=== PATIENT | female | born 1975 | race Caucasian/White ===

== ENCOUNTER → 2016-03-14 | Outpatient (CLI) | payer BC ==
[~2016-03-14] MED LIST: ASPI1TAB14 PO; ASPI1TAB22 PO; DESO1TAB PO; ELET40TA PO; ESOM20CA PO; HYDR5SUS PO; LORA-404 PO; MAGN400C PO; MAGN500C4 PO; METH-290 PO; NAPR220C11 PO; NAPR220T76 PO; NAPR550T PO; OMEP20TA PO; OXYC-109 PO; PHEN10TA20 PO; PRED20TA PO; PRM25T PO; PSEU120T53 PO; RIBO100T6 PO; SERT100T PO; SERT50TA2 PO; SULF-221 PO; TOPI25CA6 PO; TOPI50TA5 PO; ZLP10T PO
[2016-03-14 14:49] VITALS: BP 141/97
--- NOTE | 2016-03-14 14:49 | Urgent Care T Sheet Gen (E) ---
Intake General Temperature (Fahrenheit): 98.0 Pulse: 103 Blood Pressure Systolic: 141 Blood Pressure Diastolic: 97 Respirations: 20 SPO2: 100 Description of Symptoms Patient presents with sinus congestion and pressure. States the headache started about a week ago, most intense in the forehead. States the sinus congestion started about 4 days ago. No cough or chest symptoms. Been taking several OTC meds without improvement. Took some severe cold decongestant earlier. No fever. History of Present Illness Allergies: Coded Allergies: cefotetan (Verified Allergy, Severe, 03/30/14) Penicillins (Verified Allergy, Unknown, 03/30/14) Home Meds Active Scripts Prednisone 20 Mg Lgzozp56 Mg PO DAILY #6 TAB Prov:ANDI RM 03/14/16 Sulfamethoxazole/Trimethoprim (Sulfamethoxazole/Trimethoprim DS 800mg/160mg)1 Each Tablet1 Each PO BID #14 TAB Prov:ANDI RM 03/14/16 Hydrocodone/Chlorphen Polis (Hydrocodone-Chlorpheniram Susp)5 Ml Muna.er.12h5 Ml PO Q12H PRN COUGH #60 Prov:DENIS LAL MD 09/21/14 Reported Medications Sertraline HCl (Zoloft)100 Mg Mfsugm615 Mg PO DAILY 12/08/14 Desogestrel-Ethinyl Estradiol (Emoquette)1 Each Tablet1 Each PO DAILY 09/05/14 Magnesium Oxide (Magnesium)500 Mg Favvmfl470 Mg PO DAILY 09/05/14 Topiramate 50 Mg Dnrnam37 Mg PO BID 09/05/14 Eletriptan Hydrobromide (Relpax)40 Mg Ijtooh37 Mg PO PRN 03/30/14 Aspirin/Acetaminophen/Caffeine (Excedrin Migraine Caplet)1 Each Tablet2 Each PO PRN 03/30/14 Pseudoephedrine HCl (Sudafed 12 Hour)120 Mg Tablet.er240 Mg PO PRN 03/30/14 Naproxen Sodium (Aleve)220 Mg Vcqyvp594 Mg PO PRN 03/30/14 Methylphenidate HCl (Methylphenidate ER)10 Mg Tablet.er10 Mg PO PRN 03/30/14 Lorazepam (Ativan)0.5 Mg Tablet0.5 Mg PO PRN PRN ANXIETY Ref 0 03/30/14 Riboflavin (Vitamin B-2)100 Mg Flshld773 Mg PO DAILY 03/30/14 Esomeprazole Magnesium (Nexium)20 Mg Capsule.dr20 Mg PO DAILY 03/30/14 Respiratory Constitutional Symptoms: Malaise EENTM: Nose Congestion Respiratory: No symptoms reported Cardiovascular: No symptoms reported Neurological: Headache All Other Systems Reviewed Remaining Systems: All other systems reviewed with negative findings Past Snvozfm-Drbvqw-Ueobto Hx Patient's Social History Recent foreign travel: No Surgeries/Hospitalizations Hospitalization/Surgery Hx: MIGRAINE, DEPRESSION, ANXIETY, LEFT WRIST SURGERY D&C X2 Respiratory Respiratory History: Asthma Comment: asthma as a child Cardiovascular Cardiovascular History: None Reproductive System Sexually Transmitted Diseases: No Gastrointestinal GI/Endocrine History: GERD Diabetes Diabetes: No HEENT Impaired Vision: Glasses Hearing Impaired: None Psychosocial Behavior Disorders: None Physical Exam Physical Exam General Appearance: WD/WN No apparent distress Eyes, Ears, Nose, Throat Ex: TMs normal (air fluid bubbles) Pharyngeal erythema (cobblestone appearance) Other (red, swollen nasal turbinates with clear nasal drainage. tender over frontal sinuses) Neck Exam: SuppleNo Lymphadenopathy Respiratory Exam: Lungs clear Normal breath sounds Cardiovascular Exam: Regular rate, rhythm Departure Urgent Care Impression Impression: Primary Impression: Sinusitis Qualified Code: J01.10 - Acute frontal sinusitis, unspecified Departure Disposition: HOME OR SELF-CARE Condition: Stable Referrals: BROWN DOUGLASS MD (PCP) Additional Instructions: I have started the patient on Bactrim for treatment of her infection. States she took a Z-Pack with her last sinus infection and it didn't seem quite strong enough. I have also prescribed Prednisone for congestion and swelling. No NSAIDs while on this. Suggested she DC the OTC cold meds as they are most likely increasing her BP Rest. Fluids Return as needed Patient understands DC instructions. All questions were answered. Scripts Prednisone 20 Mg Axgure65 Mg PO DAILY #6 TAB Prov:ANDI RM 03/14/16 Sulfamethoxazole/Trimethoprim (Sulfamethoxazole/Trimethoprim DS 800mg/160mg)1 Each Tablet1 Each PO BID #14 TAB Prov:ANDI RM 03/14/16 End of report . ANDI RM Mar 14, 2016 14:24
== END ==
LOC: MHUC 13:57
PROVIDERS: ATTEND Physician Assistant
DX: J01.10 Acute frontal sinusitis, unspecified (principal)
CPT/HCPCS: 99213

== ENCOUNTER 2016-07-20 16:08 | Emergency (ER) | payer BC ==
[~2016-07-20] VITALS: Ht 165.1 cm; Wt 109.0 kg
[~2016-07-20 16:08] MED LIST changes: -TOPI50TA5 PO; +TOPI50TA86 PO
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
--- OUTSIDE RECORDS SUMMARY | 2016-07-20 16:15 | XMS REPORT | Continuity of Care Document ---
Author Author [facility] Address Unknown Phone Unavailable Allergies Active Description Code Type Severity Reaction Onset Reported/Identified Relationship to Patient Clinical Status Yes cefotetan [id number] Drug Allergy Severe N/A 03/30/2014 Yes Penicillins [id number] Drug Allergy Unknown N/A 03/30/2014 Medications Problems [...] Status Pt. Type Provider Facility Loc./Unit Complaint [id number] 12/08/2014 19:02:00 2014 20:35:00 DIS Emergency OZIEL MAYORGA DO [facility] ED [id number] 09/21/2014 21:35:00 2014 22:53:00 DIS Emergency HALI GIANG, [facility] ED [id number] 09/05/2014 21:34:00 2014 23:30:00 DIS Emergency HALI GIANG, [facility] ED [id number] 03/30/2014 16:27:00 2014 18:44:00 DIS Emergency ULICES GIANG, MARCELA Cabrales [facility] ED [id number] 09/30/2013 11:28:00 2013 23:59:59 CLS Outpatient Viet GIANG, [facility] * MEASELS TITER [id number] 09/24/2013 20:03:00 2013 00:00:00 DIS Emergency ADELINA SUAREZ DO [facility] ED [id number] 04/03/2013 09:12:00 2013 11:50:00 DIS Emergency JIMMY NOMEI [facility] ED [id number] 07/20/2016 16:11:00 ACT Emergency MIKAYLA GIANG, KYRA [facility] ED [id number] 03/14/2016 13:57:00 ACT Outpatient SUJEY CLARKE, ANDI Hernandez [facility] [id number] 01/16/2016 10:14:00 [id number] 05/31/2012 14:09:00 Document Registration [id number] 05/31/2012 13:15:00 Document Registration [id number] 02/28/2012 08:12:00 Document Registration
[2016-07-20] MEDS ORDERED: KETOROLAC 30 MG/ML (TORADOL) 1 ML VIAL IV ONE (16:30)
[2016-07-20] MEDS ORDERED: METOCLOPRAMIDE 10 MG/2 ML (REGLAN) VIAL IV ONE (16:30)
[2016-07-20] MEDS ORDERED: diphenhydrAMINE 50 MG/ML INJ (BENADRYL) IV ONE (16:30)
[2016-07-20] MEDS ORDERED: DEXAMETHASONE 10 MG/ML (DECADRON) VIAL IV ONE (16:30)
[2016-07-20] MEDS ORDERED: HALOPERIDOL 5 MG/ML (HALDOL) 1 ML AMP IV ONE (17:35)
--- NOTE | 2016-07-20 17:40 | NUR ---
Clarified order of Haldol to be given IV with Dr. Amador. Dr. Amador verified medication, dosage and route to be given.
[2016-07-20 19:29] VITALS: BP 95/61
== END 2016-07-20 19:29 | disposition home or self-care (01) ==
LOC: ED 16:11
DX: G43.809 Other migraine, not intractable, without status migrainosus (principal)
CPT/HCPCS: 96361; 96374; 96375; 99284; J1100; J1200; J1630; J1885; J2765; J7030; 99282